=== PATIENT | female | born 1955 | race African-American/Black ===

== ENCOUNTER → 2017-10-09 | Day surgery (SDC) | payer BC ==
--- OUTSIDE RECORDS SUMMARY | 2017-10-09 06:51 | XMS | Continuity of Care Document ---
:1955 Author Organization [facility] Care Team Providers Name Role Phone BRITTANY CARRINGTON Primary Care Physician Unavailable Insurance Providers Payer Name Policy Number Subscriber Name Relationship [facility] [id number] JUSTYNA PAULINA Advance Directives Directive Response Recorded Date/Time Advance Directive? N 02/27/16 2:40pm Living Will? N 02/27/16 2:40pm Health Care Proxy? N 02/27/16 2:40pm Healthcare Power of Marine Engine Driver? N 02/27/16 2:40pm Is the patient an Organ Donor? N 02/27/16 2:40pm Chief Complaint and Reason for Visit Reason for Visit HEADACHE, CVA Problems No problem information available. Medications Current Home Medications Medication Dose Units Route Directions Days/Qty Instructions Start Date ASPIRIN (ASPIRIN 81 MG PO EVERY DAY @ LOW DOSE) 81 MG 0900 CHW Amlodipine 10 MG PO EVERY DAY @ 1 Besylate (NORVASC 0900 10MG TAB) 10 MG TAB Ciprofloxacin 400 MG IVPB Q12HR 1 CIPRO 400 MG IV 08/12/14 (CIPRO 400 MG RTU) Q12 HRS UNTIL 400 MG/200 ML INJ 08/26/14 Clopidogrel 75 MG OR EVERY DAY @ Bisulfate (Plavix) 0900 75 MG TAB Cod Liver Oil (Gnp 1 CAP PO EVERY MORNING Cod Liver Oil 1250-135 Unit) 1 CAP CAP Docusate Sodium 100 MG OR TWICE A DAY (Stool Softener) (0900; 2100) 100 MG CAP HYDRALAZINE HCL 10 MG PO TWICE A DAY (HYDRALAZINE 10 MG (0900; 2100) TAB) 10 MG TAB Insulin Aspart, 20 U SC THREE TIMES Human Analog DAILY WITH (Novolog) 100 U/ML MEALS ML Isosorbide 30 MG PO EVERY DAY @ 1 Mononitrate 0900 (Imdur) 30 MG TAB Lantus INJ 40 UNITS SC IN AM Lisinopril 40 MG PO TWICE A DAY (ZESTRIL 20MG) 20 (899; 2099) MG TAB METFORMIN 1,000 MG PO TWICE A DAY HYDROCHLORIDE (899; 2099) (METFORMIN HCL) 1,000 MG TAB Metoprolol 50 MG PO TWICE A DAY 1 1 tablet po Tartrate (899; 2099) twice a day (LOPRESSOR 50 MG TAB) 50 MG TAB Simvastatin (ZOCOR 40 PO AT BEDTIME 1 40 MG) 40 MG TAB (2100) Past Home Medications Medication Directions Ordered Status Insulin Aspart, Human Analog THREE TIME A DAY(;;) Unknown Discontinued (Novolog) Inj Inj, 1 Sc Lisinopril 40 Mg Tab Tab, 40 Mg Or EVERY DAY @ 0900 Unknown Discontinued Metformin Hydrochloride (Metformin) AT BEDTIME (2099) Unknown Discontinued 1,000 Mg Tab Tab, 2,000 Mg Or Social History Query Response Start Date Stop Date Smoking Status: Never Smoker Hospital Discharge Instructions No hospital discharge instructions. Plan of Care Discharge Date 03/17/13 Disposition HOME/SELF CARE Prescriptions See Medications Section Functional Status No functional status results. Allergies, Adverse Reactions, Alerts No known allergies. Immunizations No Known History of Immunizations. Vital Signs Vital Reading Collection Date/Time Result Blood Pressure 03/17/13 11:00am 176/84 Patient Temperature 03/17/13 11:00am 96.3 Respiratory Rate 03/17/13 11:00am 18 Pulse Rate 03/17/13 11:00am 59 Bedside Pulse Oximetry 03/17/13 11:00am 98 Results Laboratory Results Test Name Result Units Flags Reference Collection Result Comments Date/Time Date/Time Sodium Level 138 mmol/L 135-144 03/16/13 03/16/13 4:55am 6:03am Potassium Level 3.6 mmol/L 3.5-5.1 03/16/13 03/16/13 4:55am 6:03am Chloride Level 105 mmol/L 101-111 03/16/13 03/16/13 4:55am 6:03am Carbon Dioxide 28 mmol/L 22-32 03/16/13 03/16/13 Level 4:55am 6:03am Random Glucose 224 mg/dL H 70-109 03/16/13 03/16/13 Random glucose > 200 mg/dL in a patient with typical 4:55am 6:03am symptoms of diabetes (polydipsia, polyuria and unexplained weight loss) satisfies ADA criteria for diabetes mellitus if confirmed by repeat testing on another day. Confirmation is unnecessary when acute metabolic decompensation with hyperglycemia is manifested. Reference: Report of the Expert Committee on the Diagnosis and Classification of Diabetes Mellitus. Diabetes Care, 20:1183, 1997. Blood Urea 16 mg/dL 8-26 03/16/13 03/16/13 Nitrogen 4:55am 6:03am Creatinine 0.63 mg/dL 0.44-1.00 03/16/13 03/16/13 4:55am 6:03am EGFR Note > 60.0 03/16/13 03/16/13 eGFR (Estimated Glomerular Filtration Rate) 4:55am 6:03am Reference Range: >60 ml/min/1.73m eGFR calculation value obtained using the MDRD equation. The reportable reference ranges is recommended to be greater than 60 ml/min/1.73m. This is an estimation of the patient's GFR and clinical correlation is recommended. Calcium Level 9.0 mg/dL 8.9-10.3 03/16/13 03/16/13 4:55am 6:03am White Blood Count 10.8 K/uL 4.8-10.8 03/09/13 03/09/13 4:50pm 5:22pm Red Blood Count 4.25 M/uL 3.70-5.40 03/09/13 03/09/13 4:50pm 5:22pm Hemoglobin 12.6 g/dL 12.0-16.0 03/09/13 03/09/13 4:50pm 5:22pm Hematocrit 39.2 % 37.0-47.0 03/09/13 03/09/13 4:50pm 5:22pm Mean Corpuscular 92.3 fl 80.0-100.0 03/09/13 03/09/13 Volume 4:50pm 5:22pm Mean Corpuscular 29.5 pg 27.0-31.0 03/09/13 03/09/13 Hemoglobin 4:50pm 5:22pm Mean Corpuscular 32.0 g/dL 32.0-36.0 03/09/13 03/09/13 Hgb Concent Diff 4:50pm 5:22pm Red Cell 15.1 % H 11.5-14.5 03/09/13 03/09/13 Distribution Width 4:50pm 5:22pm Platelet Count 338 K/uL 130-400 03/09/13 03/09/13 4:50pm 5:22pm Mean Platelet 8.7 fl 7.4-10.4 03/09/13 03/09/13 Volume 4:50pm 5:22pm Granulocytes (%) 64.1 % 50.0-75.0 03/09/13 03/09/13 4:50pm 5:22pm Lymphocytes % 26.4 % 20.0-40.0 03/09/13 03/09/13 4:50pm 5:22pm Monocytes % 7.5 % 0.0-15.0 03/09/13 03/09/13 4:50pm 5:22pm Eosinophils % 1.3 % 0.0-10.0 03/09/13 03/09/13 4:50pm 5:22pm Basophils % 0.7 % 0.0-2.0 03/09/13 03/09/13 4:50pm 5:22pm Granulocytes # 6.9 K/uL H 1.8-6.4 03/09/13 03/09/13 4:50pm 5:22pm Lymphocytes # 2.8 K/uL 1.2-3.6 03/09/13 03/09/13 4:50pm 5:22pm Monocytes # 0.8 K/uL 0.3-0.9 03/09/13 03/09/13 4:50pm 5:22pm Eosinophils # 0.1 K/uL 0.0-0.5 03/09/13 03/09/13 4:50pm 5:22pm BASO # 0.1 K/uL 0.0-0.2 03/09/13 03/09/13 4:50pm 5:22pm Manual NO 03/09/13 03/09/13 Differential 4:50pm 5:22pm Anion Gap 9.5 mmol/L L 10-20 03/09/13 03/09/13 4:50pm 5:42pm Albumin 3.9 g/dL 3.5-5.0 03/09/13 03/09/13 4:50pm 5:42pm Total Bilirubin 0.4 mg/dL 0.3-1.2 03/09/13 03/09/13 4:50pm 5:42pm Alkaline 78 IU/L 32-91 03/09/13 03/09/13 Phosphatase 4:50pm 5:42pm Total Protein 7.8 g/dL 6.5-8.1 03/09/13 03/09/13 4:50pm 5:42pm Alanine 13 IU/L 7-55 03/09/13 03/09/13 Aminotransferase 4:50pm 5:42pm (ALT/SGPT) Aspartate Amino 14 IU/L L 15-41 03/09/13 03/09/13 Transf (AST/SGOT) 4:50pm 5:42pm Globulin 3.9 g/dL H 2.3-3.5 03/09/13 03/09/13 4:50pm 5:42pm Albumin/Globulin 1.0 L 1.2-2.2 03/09/13 03/09/13 Ratio 4:50pm 5:42pm Creatine Kinase 90 IU/L 38-234 03/09/13 03/09/13 4:50pm 5:42pm Creatine Kinase MB 1.6 ng/ML 0.6-6.3 03/09/13 03/09/13 4:50pm 5:42pm Troponin I 0.00 ng/mL 0.00-0.03 03/09/13 03/09/13 4:50pm 5:42pm Troponin I-Interpretation Reference : <0.03 ng/mL NEGATIVE 0.04 - 0.49 ng/mL EQUIVOCAL =OR > 0.5 ng/mL CONSISTENT WITH ACUTE MYOCARDIAL INJURY 98% of confirmed AMI patients will have at least one value in a set or serial specimens >0.50 ng/ml. 99% of normals are between 0.0 - 0.10 ng/ml. Serial samples on a patient that are all <0.10 ng/ml effectively rules out AMI. Persistently increased troponin I values that are above the upper limit of normal but below the threshold for AMI indicate mycardial injury but not necessarily an ischemic mechanism of injury. Troponin Important Points 1. Troponin is specific for myocardial injury but not for AMI. Elevated troponin levels above the upper limit of normal but below the AMI cutoff may be present in cardiac injury other then AMI and represent some degree of risk. 2. Elevated troponin levels inconsistent with patient history or clinical condition should be considered a sign to investigate for other cardiac conditions. 3. Serial sampling is critical for accurate diagnosis. Myoglobin 29 ug/mL 14.3-65.8 03/09/13 03/09/13 4:50pm 5:42pm Urine Color YELLOW YELLOW 03/09/13 03/09/13 6:00pm 9:25pm Urine Appearance CLEAR CLEAR 03/09/13 03/09/13 6:00pm 9:25pm Urine Glucose NEGATIVE mg/dL NEGATIVE 03/09/13 03/09/13 6:00pm 9:25pm Urine Bilirubin NEGATIVE NEGATIVE 03/09/13 03/09/13 6:00pm 9:25pm Urine Ketones NEGATIVE NEGATIVE 03/09/13 03/09/13 6:00pm 9:25pm Urine Specific 1.020 1.002-1.03 03/09/13 03/09/13 [place] 0 6:00pm 9:25pm Urine Blood NEGATIVE NEGATIVE 03/09/13 03/09/13 6:00pm 9:25pm Urine pH 6.0 4.5-8.0 03/09/13 03/09/13 6:00pm 9:25pm Urine Protein NEGATIVE mg/dL NEGATIVE 03/09/13 03/09/13 6:00pm 9:25pm Urine Urobilinogen 0.2 E.U./d 0.2 03/09/13 03/09/13 L 6:00pm 9:25pm Urine Nitrite NEGATIVE NEGATIVE 03/09/13 03/09/13 6:00pm 9:25pm Urine Leukocyte NEGATIVE NEGATIVE 03/09/13 03/09/13 Esterase 6:00pm 9:25pm Urine Microscopic NO NO 03/09/13 03/09/13 Indicated 6:00pm 9:25pm Microbiology Results Procedure Source Result Collection Date/Time Result Date/Time Aerobic Culture Leg, Left Klebsiella Pneumoniae 02/13/16 3:00pm 02/16/16 2: 06pm Proteus Mirabilis 02/13/16 3:00pm 02/16/16 2:06pm Strep Agalactiae 02/13/16 3:00pm 02/16/16 2:06pm Group B [facility] DISCHARGE SUMMARY Yunier Dias MR#: [id number] ADM: 03-10-2013 DIS: 03-17-2013 REASON FOR ADMISSION: Headache, right upper extremity and left lower extremity weakness. PRIMARY CARE PHYSICIAN: [facility]. DISCHARGE DIAGNOSES: 1) Acute ischemic CVA. 2) Previous CVA . 3) Dyslipidemia. 4) Type 2 diabetes, insulin-requiring. 5) Hypertension. 6) Lesion of right palatine tonsil. 7) Right vertebral artery stenosis. 8) Intracranial arterial disease. PROCEDURES: 1) Chest CT with contrast showing focal linear scarring and/or atelectasis; in area where there was concern for nodule, there is no nodule mass or mediastinal adenopathy. 2) CT angio of neck showing significant intracranial arterial disease, high grade stenosis at the right M1 segment, left upper lobe pulmonary nodule (this was confirmed not to be a nodule by CT as noted above #1). Lobulated hypodense mass in the mildly enlarged palatine tonsil on right. Stenosis of right vertebral artery. Unremarkable common extracranial internal carotid arteries. 3) MRI of neck showing hypoplastic tortuous left vertebral artery. 4) MRA of head showing high grade stenosis of proximal right M1 segment, [id number] stenosis to the left and right P1 segments. 5) MRI of brain - Acute infarct involving left brain stem. HOSPITAL COURSE SUMMARY: [age] year old female admitted with worsening weakness of the left lower and right upper extremity and gait abnormality, also headache. The patient was admitted and found to have an acute brain stem infarct. She had been on low dose aspirin, Plavix was added and then she gradually improved over the course of the hospitalization. She was still a bit wobbly and needed walker to get around. She had some other abnormalities noted as with the vertebral artery stenosis as well as the abnormality in the right palatine tonsil. She is going to need to follow-up with [facility] at which time, she will need referrals for a follow-up CT of the right palatine tonsil and a ENT consult as well as referral for the intracranial arterial disease and the right vertebral artery stenosis. (continued on page 2 of 2) [facility] DISCHARGE SUMMARY Yunier Dias DS: Page 2 of 2 DISCHARGE EXAM: At the time of discharge, blood pressure 176/84 with a heart rate of 59, she is afebrile, O2 sats on room air are 98%. In view of this blood pressure, I am going to make some adjustments on her blood pressure medication prior to discharge, see Discharge Meds. IN GENERAL: The patient is alert and oriented. HEENT: Within normal limits. NECK: No adenopathy or bruits. HEART: Regular rate and rhythm, no murmur. LUNGS: Clear bilaterally. ABDOMEN: Benign. EXTREMITIES: No edema. CONDITION AT DISCHARGE: The patient being discharged in stable condition. FOLLOW-UP: Next week with the [facility]. MEDICATIONS ON DISCHARGE: Lantus 40 units sub-cu daily, Metformin 1,000mg Lisinopril 40mg daily, Hydrochlorothiazide 25mg daily, NovoLog by sliding scale, Lopressor 50mg b.i.d., Norvasc 10mg daily, Imdur 30mg daily, Zocor 40mg daily, Plavix 75mg daily and Hydralazine 10mg b.i.d. DIET: Diabetic diet. ACTIVITY: As tolerated. She is also being provided a bedside commode, walker and transfer bench. SKB/dys/la Ashia Martin M.D. DISCHARGE SUMMARY Date: Time: d 03-17 (4112) t 03-19 (7155) #[id number] Report Dictated By: Ashia Martni Report Signed By: Ashia Martin 03/20/13 1026 <<Signature on File>> Procedures No Known History of Procedures. Encounters Encounter Location Arrival/Admit Date Discharge/Depart Date Attending Provider Discharged [place] 02/27/16 2:39pm 03/05/16 2:30pm KHAN, [facility] Discharged [place] 02/27/16 2:39pm 03/05/16 2:30pm KHAN, [facility] Discharged [place] 02/27/16 2:39pm 03/05/16 2:30pm KHAN, [facility] Discharged [place] 02/13/16 2:14pm 02/23/16 1:34pm KHAN, [facility] Discharged [place] 02/13/16 2:14pm 02/23/16 1:34pm KHAN, [facility] Discharged [place] 02/13/16 2:14pm 02/23/16 1:34pm KHAN, [facility] Discharged [place] 03/09/13 3:41pm 03/17/13 5:44pm LISETH JUSTICE [facility]
--- OUTSIDE RECORDS SUMMARY | 2017-10-09 06:51 | XMS | Clinical Summary ---
:1955 Author Organization [facility] Address [address] [place] [address] Phone Care Team Providers Name Role Phone , Primary Care Provider Unavailable Allergies No Known Allergies Current Medications Prescription Sig. Disp. Refills Start Date End Date Status amLODIPine (NORVASC) 10 mg daily . 11/08/2016 Active 10 MG tablet atorvastatin 10 mg daily . 11/08/2016 Active (LIPITOR) 10 MG tablet clopidogrel (PLAVIX) nightly . 11/08/2016 Active 75 mg tablet levoFLOXacin . 11/01/2016 Active (LEVAQUIN) 500 MG tablet sulfamethoxazole-trim . 12/10/2016 Active ethoprim (BACTRIM DS) 800-160 mg per tablet insulin glargine Inject 60 Units Active (LANTUS) 100 unit/mL subcutaneously every injection morning Use as directed . insulin aspart Inject 30 Units Active (NOVOLOG) 100 unit/mL subcutaneously 3 injection (three) times daily before meals Checks BS before meals before giving medication . metoprolol Take 50 mg by mouth Active (TOPROL-XL) 50 MG 24 daily. hr tablet metFORMIN Take 1,000 mg by mouth Active (GLUCOPHAGE) 1000 MG 2 (two) times daily tablet with breakfast and dinner. isosorbide Take 30 mg by mouth Active mononitrate (IMDUR) daily. 30 MG 24 hr tablet docusate sodium Take 100 mg by mouth Active (COLACE) 100 MG daily as needed for capsule Constipation. multivitamin per Take 1 tablet by mouth Active tablet daily. ibuprofen Take 200 mg by mouth Active (ADVIL,MOTRIN) 200 MG every 6 (six) hours as tablet needed for Pain (patient takes two tablets for pain or headache). 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 Social History Tobacco Use Types Packs/Day Years Used Date Never Smoker Alcohol Use Drinks/Week oz/Week Comments No Sex Assigned at Date Recorded Not on file Last Filed Vital Signs Vital Sign Reading Time Taken Blood Pressure 157/59 02/07/2017 12:00 PM CDT Pulse 78 02/07/2017 12:00 PM CDT Temperature 36.6 C (97.8 F) 02/07/2017 12:00 PM CDT Respiratory Rate 18 02/07/2017 12:00 PM CDT Oxygen Saturation 97% 02/07/2017 12:00 PM CDT Inhaled Oxygen Concentration - - Weight 121 kg (266 lb 11.2 oz) 02/07/2017 3:48 AM CDT Height 177.8 cm (5' 10") 02/06/2017 10:38 PM CDT Body Mass Index 38.27 02/07/2017 3:48 AM CDT Plan of Treatment Health Maintenance Due Date Last Done Comments INFLUENZA VACCINE 08/25/2017 Results Not on filefrom Last 3 Months
--- OUTSIDE RECORDS SUMMARY | 2017-10-09 06:51 | XMS | Continuity of Care Document ---
:1955 Author Organization [facility] Care Team Providers Name Role Phone BRITTANY CARRINGTON Primary Care Physician Unavailable Insurance Providers Payer Name Policy Number Subscriber Name Relationship [facility] [id number] JUSTYNA PAULINA Advance Directives Directive Response Recorded Date/Time Advance Directive? N 02/23/16 5:09pm Living Will? N 02/23/16 5:09pm Health Care Proxy? N 02/23/16 5:09pm Healthcare Power of [employer]? N 02/23/16 5:09pm Is the patient an Organ Donor? N 02/23/16 5:09pm Chief Complaint and Reason for Visit Reason [...] po Tartrate (899; 2099) twice a day (Lopressor 50 MG) 50 MG TAB Simvastatin (ZOCOR 40 PO [...] 9:25pm Urine Specific 1.020 1.002-1.03 03/09/13 03/09/13 [place] 0 6:00pm 9:25pm Urine Blood NEGATIVE NEGATIVE [...] 3:00pm 02/16/16 2:06pm Strep Agalactiae 02/13/16 3:00pm 03/24/16 2:06pm Group B [facility] DISCHARGE SUMMARY Yunier Dias MR#: [id number] ADM: 03-10-2013 DIS: 03-17-2013 REASON FOR ADMISSION: Headache, right upper extremity and left lower extremity weakness. PRIMARY CARE PHYSICIAN: [facility]. DISCHARGE DIAGNOSES: 1) Acute ischemic CVA. [...] grade stenosis of proximal right M1 segment, [id number] stenosis to the left and right P1 [...] is going to need to follow-up with [facility] at which time, she will need referrals for a follow-up CT of the right palatine tonsil and a ENT consult as well as referral for the intracranial arterial disease and the right vertebral artery stenosis. (continued on page 2 of 2) [facility] DISCHARGE SUMMARY Yunier Dias DS: Page 2 [...] stable condition. FOLLOW-UP: Next week with the [facility]. MEDICATIONS ON DISCHARGE: Lantus 40 units [...] M.D. DISCHARGE SUMMARY Date: Time: d 03-17 (0559) t 03-19 (5494) #[id number] Report Dictated By: Ashia Martin Report Signed By: Ashia Martin 03/20/13 1026 <<Signature on File>> Procedures No Known History of Procedures. Encounters Encounter Location Arrival/Admit Date Discharge/Depart Date Attending Provider Discharged [place] 02/13/16 2:14pm 02/23/16 1:34pm KHAN, [facility] Discharged [place] 02/13/16 2:14pm 02/23/16 1:34pm KHAN, [facility] Discharged [place] 02/13/16 2:14pm 02/23/16 1:34pm KHAN, [facility] Discharged [place] 12/01/15 3:21pm 12/15/15 1:30pm KHAN, [facility] Discharged [place] 12/01/15 3:21pm 12/15/15 1:30pm KHAN, [facility] Discharged [place] 12/01/15 3:21pm 12/15/15 1:30pm KHAN, [facility] Discharged [place] 12/01/15 3:21pm 12/15/15 1:30pm KHAN, [facility] Discharged [place] 12/01/15 3:21pm 12/15/15 1:30pm KHAN, [facility] Discharged [place] 03/09/13 3:41pm 03/17/13 5:44pm LISETH JUSTICE [facility]
--- NOTE | 2017-10-09 10:22 | MMO ---
STEREOTACTIC LEFT BREAST BIOPSY: CLINICAL HISTORY: Indeterminate left breast calcifications. PROCEDURE: Informed consent was obtained. The patient was escorted to the procedural suite. The patient was pl aced in the prone position. The left breast was placed into compression. Stereotactic coordinates o f the calcifications were acquired. The left breast was then prepped and draped in standard sterile fashion. Topical anesthesia with 1% Lidocaine was achieved. A small skin incision was made through which a 10-gauge vacuum assist stereotactic needle was advanced to the leading edge of the calcificat ion and the biopsy needle was then deployed, confirmed with tangential mammographic views. Six core specimens were then acquired. These specimens were radiographed and there were patient portal representative calcif ications within the biopsied specimen confirmed radiographically. Therefore, the biopsy needle was r emoved. A biopsy marking clip was then advanced to and deployed within the site of biopsy, confirmed with radiographic imaging. All devices were otherwise removed. The patient tolerated the procedure well without evidence of com plication. IMPRESSION: 1. Technically successful stereotactic left breast biopsy. 2. Technically successful clip deployment within the site of biopsy of the left breast. 3. Pathology results are pending. The patient will be notified o results when they are received. POS: [facility]
--- NOTE | 2017-10-09 20:04 | MMO ---
SPECIMEN RADIOGRAPH: 10/09/17 CLINICAL HISTORY: Status post stereotactic biopsy. FINDINGS: Submitted specimen radiographs reveal calcifications of interest within the radiograph specimen. IMPRESSION: Radiograph specimen reveals calcifications of interest. POS: [facility]
--- NOTE | 2017-10-09 20:06 | MMO ---
DIAGNOSTIC LEFT MAMMOGRAM 10/09/17 CLINICAL HISTORY: Status post stereotactic biopsy. FINDINGS: There are two submitted post stereotactic biopsy diagnostic views of the left breast, MLO and CC in p rojection. This reveals a biopsy marking clip as well as postprocedural findings at the site of calci fication of interest within the upper outer left breast. IMPRESSION: Status post stereotactic biopsy and clip deployment of the left breast. POS: [facility]
== END ==
LOC: MAMMO 06:48
PROVIDERS: ATTEND Specialist
PROC: 0HBU3ZX Excision of Left Breast, Percutaneous Approach, Diagnostic (ICD-10-PCS; principal; 2017-10-09)
DX: N60.32 Fibrosclerosis of left breast (principal)
CPT/HCPCS: 19081; 76098; 88305; 89060; G0206-LT

== ENCOUNTER → 2019-07-22 | Day surgery (SDC) | payer BC ==
--- NOTE | 2019-07-22 10:45 | MMO ---
LEFT BREAST STEREOTACTIC BIOPSY: HISTORY: Pleomorphic calcifications in the anterior left breast. FINDINGS: Successful left breast stereotactic biopsy. Calcifications are present in the biopsy sample. The cl ip was deployed and is outside the needle. TECHNIQUE: Consent obtained to perform a left breast stereotactic biopsy. The patient was placed in the supine p osition on the stereotactic table. Calcifications were identified in the CC projection. The skin wa s prepped and draped in a sterile fashion. Lidocaine 1%, buffered with sodium bicarbonate, was used for local anesthesia. Needle position was confirmed pre and post firing. A total of six 10 gauge co re biopsy samples were obtained. SPECIMEN RADIOGRAPH: Calcifications are present. A biopsy clip was placed. There were no immediate or post procedure complications. POST PROCEDURE MAMMOGRAM: The number of calcifications in the anterior depth of the upper outer quad rant of the left breast has decreased. A surgical cavity is noted. Appropriate positioning of the b iopsy clip. IMPRESSION: Successful left breast stereotactic biopsy. Final pathologic diagnosis pending. POS: [facility]
== END ==
LOC: MAMMO 07:54
PROVIDERS: ATTEND Physician Assistant Medical
PROC: 0HBU3ZX Excision of Left Breast, Percutaneous Approach, Diagnostic (ICD-10-PCS; principal; 2019-07-22)
DX: N60.12 Diffuse cystic mastopathy of left breast (principal)
CPT/HCPCS: 19081; 76098; 88305